=== PATIENT | female | born 1945 | race Caucasian/White ===

== ENCOUNTER → 2018-12-08 | Day surgery (SDC) | payer MEDICARE, BC ==
[~2018-12-08] MED LIST: Bupivacaine 0.25% 30 ML SDV ONE; Lidocaine 1% with EPINEPHrine 1:100,000 20 ML MDV ONE
--- NOTE | 2018-12-08 11:46 | PCM.OPNOTE ---
- General Post-Op/Procedure Note Date of Surgery/Procedure: 12/08/18 Operative Procedure(s): Excision Basal Cell Ca Right Cheek with primary closure. Excision of Basal Cell Ca of Nose with closure by rotation cutaneous flap Findings: Basal Cell Ca right cheek and nose with clear margins by RFS Pre Op Diagnosis: Basal Cell Ca of face and nose Post-Op Diagnosis: Same Anesthesia Technique: Local Primary Surgeon: Maynor Lopez Pathology: skin lesions right cheek and nose with RFS Output, Urine Amount: 0 EBL in mLs: 10 Complications: None Condition: Good
[2018-12-08 12:46] VITALS: BP 134/70
--- NOTE | 2018-12-08 18:18 | OR ---
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 POSTOPERATIVE DIAGNOSIS: Basal cell carcinomas of the nose and right cheek. OPERATION PERFORMED: Excision of basal cell carcinoma of the nose with closure by rotational cutaneous flap and excision of basal cell carcinoma of the right cheek. INDICATIONS FOR SURGERY: This is a 73-year-old female who has developed skin lesions on the nose and right cheek. She comes today for excision with rapid frozen section analysis. FINDINGS: On the right cheek, the patient has a 1-cm irregularly shaped slightly raised skin lesion. Pathology has confirmed this to be a basal cell carcinoma. The surgical margins were clear as noted under rapid frozen section analysis. On the nose, the patient has a skin lesion which is 10 x 8 mm in size. Excision did show positive surgical margins inferiorly into the patient's left, but these appeared to be clear after re-excision of this margin. PROCEDURE IN DETAIL: The patient was taken to the operating room. The face was sterilely prepped with Betadine and draped. An elliptical incision was then used to excise the skin lesion on the right cheek with grossly clear 2-mm surgical margins. The specimen was submitted for rapid frozen section analysis and this returned showing surgical margins to be microscopically clear. This wound was then closed primarily with interrupted 5-0 Prolene for the skin. The area of the nose was then addressed. The site of the basal cell carcinoma was anesthetized with Xylocaine and Marcaine. A circular incision was made surrounding the skin lesion with grossly clear 2 mm surgical margins. The rapid frozen section analysis did show the inferior margin on the patient's left side was positive, so an additional 2-mm ellipse of skin was taken from this area. This wound was then closed by creating a rhomboid-shaped cutaneous flap superior to the defect and rotating this in and covering the defect. With tissue undermining, this defect was then able to be completely closed, securing the skin in place with interrupted 5-0 Prolene. Antibiotic ointment and sterile dressing were placed. The patient then left the operating room in satisfactory condition. ESTIMATED BLOOD LOSS: 10 mL. COMPLICATIONS: None. PROGNOSIS: Good. /[id number] TARSHA/JEANMARIE MADISON
--- NOTE | 2018-12-15 16:20 | HP ---
ADMISSION DATE: 12/08/2018 This 73-year-old female presents this morning for excision of basal cell carcinomas. She has developed these on both her nose and her right cheek. She has a history of basal cell carcinomas of other portions of her face in the past. She comes today for excision of these with rapid frozen section analysis to assure surgical margins are clear. There has been no recent significant change in her health status. The procedure will be performed under local anesthesia. The sites of the skin cancers are confirmed with the patient before proceeding. I have discussed with her the proposed operative procedure, expectations and risks have been reviewed, and she agrees to proceed. /[id number] TARSHA/JEANMARIE
== END | disposition home or self-care (01) ==
LOC: FB.SDS 07:39
PROVIDERS: ATTEND Surgery
DX: C44.311 Basal cell carcinoma of skin of nose (principal); C44.319 Basal cell carcinoma of skin of other parts of face; I27.20 Pulmonary hypertension, unspecified; I12.9 Hypertensive chronic kidney disease with stage 1 through stage 4 chronic kidney disease, or unspecified chronic kidney disease; E11.22 Type 2 diabetes mellitus with diabetic chronic kidney disease; N18.3 Chronic kidney disease, stage 3 (moderate); E78.5 Hyperlipidemia, unspecified; D64.9 Anemia, unspecified; K21.9 Gastro-esophageal reflux disease without esophagitis; F32.9 Major depressive disorder, single episode, unspecified; E66.01 Morbid (severe) obesity due to excess calories; Z68.32 Body mass index [BMI] 32.0-32.9, adult; Z79.4 Long term (current) use of insulin; Z79.899 Other long term (current) drug therapy; Z79.82 Long term (current) use of aspirin
CPT/HCPCS: 82962; 88305; 88331; 88332; J3490

== ENCOUNTER 2024-07-28 15:56 | Inpatient (IN) | payer MEDICARE, MEDICAID ==
[2024-07-28 16:29] LABS: BASOPHILS PERCENT AUTO 0.5 % (0.2-1.5); EOSINOPHILS PERCENT AUTO 0.9 % (0.6-8.1); HEMATOCRIT 40.9 % (34.2-48.2); HEMOGLOBIN 13.6 g/dL (11.4-15.5); LYMPHOCYTES ABSOLUTE AUTO 1.5 x10-3/uL (1.0-4.4); LYMPHOCYTES PERCENT AUTO 39.4 % (18.4-52.1); MEAN CORPUSCULAR HEMOGLOBIN 29.8 pg (23.9-33.9); MEAN CORPUSCULAR HGB CONC 33.2 g/dL (31.9-34.8); MEAN CORPUSCULAR VOLUME 89.9 fL (76.7-100.5); MEAN PLATELET VOLUME 8.8 fL (7.1-12.4); MONOCYTES ABSOLUTE AUTO 0.3 x10-3/uL (0.3-1.0); MONOCYTES PERCENT AUTO 7.7 % (4.4-15.7); NEUTROPHILS PERCENT AUTO 51.5 % (30.8-76.2); PLATELET COUNT,PLT 117 x10(3)uL (151-488); RED BLOOD CELL COUNT 4.55 x10(6)uL (3.60-5.20); RED CELL DISTRIBUTION WIDTH 15.9 % (12.3-16.5); WHITE BLOOD CELL COUNT,WBC 3.8 x10-3/uL (3.0-10.3)
[2024-07-28 16:41] LABS: TROPONIN I 8.7 pg/mL (4.0-60.3)
[2024-07-28 16:42] LABS: BASE EXCESS VENOUS,POC 1 mmol/L (-2 - 3+); PCO2 VENOUS,POC 43 mmHg (41-51)
[2024-07-28 16:44] LABS: A/G RATIO 0.9; ALKALINE PHOSPHATASE 146 IU/L (56-112); BILIRUBIN TOTAL 0.7 mg/dL (0.1-1.3); BLOOD UREA NITROGEN,BUN 25 mg/dL (7-18); BUN/CREATININE RATIO 16.7 (9-20); C-REACTIVE PROTEIN 4.99 mg/dL (<0.50); CALCIUM 10.2 mg/dL (8.6-10.2); CARBON DIOXIDE,CO2 27 mmol/L (21-32); CHLORIDE,CL 96 mmol/L (100-110); CREATINE KINASE,CK 45 IU/L (60-160); CREATININE 1.5 mg/dL (0.55-1.02); ESTIMATED GFR 35 mL/min (>60); GLUCOSE RANDOM 423 mg/dL (80-116); MAGNESIUM 1.4 mg/dL (1.8-2.5); PROTEIN TOTAL,TP 6.5 g/dL (6.0-8.0); SODIUM,NA 135 mmol/L (135-145)
[2024-07-28 16:45] LABS: ALANINE AMINOTRANSFERASE,ALT 689 U/L (12-36); ASPARTATE AMNIOTRANSFERASE,AST 299 IU/L (5-25)
[2024-07-28] MEDS: Sodium Chloride 0.9% 1,000 ML IV ONE ×2 (16:51→18:28)
[2024-07-28 20:58] LABS: BILIRUBIN,URINE NEGATIVE (NEGATIVE); GLUCOSE,URINE >1000 mg/dL (NORMAL); KETONES,URINE NEGATIVE (NEGATIVE); LEUKOCYTE ESTERASE,URINE MODERATE (NEGATIVE); NITRITE,URINE NEGATIVE (NEGATIVE); OCCULT BLOOD,URINE NEGATIVE (NEGATIVE); PROTEIN,URINE TRACE mg/dL (NEGATIVE); UROBILINOGEN,URINE NORMAL (NEGATIVE)
[2024-07-28 20:59] LABS: APPEARANCE,URINE CLEAR (CLEAR); BACTERIA,URINE MODERATE (NS); COLOR,URINE YELLOW (YELLOW); RBC,URINE 0-5 (0-5); SQUAMOUS EPITHELIAL CELLS,UR FEW (NS,R,O); YEAST,URINE MODERATE (NS)
[2024-07-28] MEDS ORDERED: Glucagon,Human Recombinant 1 MG Vial IM PRN (22:06)
[2024-07-28] MEDS ORDERED: 50% Dextrose in Water 50 ML Syringe IVPUSH PRN (22:06)
[2024-07-28] MEDS: Insulin Regular, Human 100 Units/ML 10 ML Vial IV ONE (22:21)
[2024-07-28] MEDS: cefTRIAXone 2 GM Vial IVPUSH ONE (22:21)
[2024-07-28] MEDS: Ondansetron 4 MG/2 ML SDV IVPUSH ONE (22:48)
[2024-07-28] MEDS: hydrALAZINE 20 MG/ML SDV IVPUSH ONE (22:50)
[2024-07-29] MEDS ORDERED: Glucagon,Human Recombinant 1 MG Vial IM PRN ×2 (00:51→01:05)
[2024-07-29] MEDS ORDERED: 50% Dextrose in Water 50 ML Syringe IVPUSH PRN ×2 (00:51→01:05)
[2024-07-29] MEDS: Enoxaparin 30 MG/0.3 ML Syringe SUBCUT SCH ×2 (01:10→08:53)
[2024-07-29] MEDS: Pantoprazole 40 MG Vial IVPUSH SCH ×2 (01:13→08:54)
[2024-07-29] MEDS: VANCOmycin 1.75 GM/350 ML 1.75 GM in Premix Bag 1 BAG IV ONE (01:23)
[2024-07-29] MEDS: Insulin Lispro 100 Unit/ML 3 ML KwikPen SUBCUT SCH ×2 (01:28→21:02)
[2024-07-29] MEDS: Magnesium Sulf/Wat 2 GM/50 mL 2 GM in Premix Bag 1 BAG IV SCH (03:18)
[2024-07-29 07:13] LABS: HEMATOCRIT 34.6 % (34.2-48.2); HEMOGLOBIN 11.8 g/dL (11.4-15.5); MEAN CORPUSCULAR HEMOGLOBIN 30.4 pg (23.9-33.9); MEAN CORPUSCULAR HGB CONC 33.9 g/dL (31.9-34.8); MEAN CORPUSCULAR VOLUME 89.5 fL (76.7-100.5); MEAN PLATELET VOLUME 8.9 fL (7.1-12.4); PLATELET COUNT,PLT 112 x10(3)uL (151-488); RED BLOOD CELL COUNT 3.87 x10(6)uL (3.60-5.20); RED CELL DISTRIBUTION WIDTH 16.2 % (12.3-16.5); WHITE BLOOD CELL COUNT,WBC 3.8 x10-3/uL (3.0-10.3)
[2024-07-29 07:17] LABS: BLOOD UREA NITROGEN,BUN 16 mg/dL (7-18); CALCIUM 8.5 mg/dL (8.6-10.2); CARBON DIOXIDE,CO2 28 mmol/L (21-32); CHLORIDE,CL 104 mmol/L (100-110); EST CRCL DRUG DOSING (CG) 33.86 mL/min; ESTIMATED GFR 57 mL/min (>60); GLUCOSE RANDOM 237 mg/dL (80-116); MAGNESIUM 2.3 mg/dL (1.8-2.5); SODIUM,NA 139 mmol/L (135-145)
[2024-07-29 07:25] LABS: POTASSIUM,K 2.6 mmol/L (3.5-5.3)
[2024-07-29 08:30] LABS: LYMPHOCYTES PERCENT MAN 35 % (13-37); MONOCYTES PERCENT MAN 6 % (4-12); SEG NEUTROPHILS PERCENT MAN 59 % (46-82)
[2024-07-29] MEDS ORDERED: Carboxymethylcellulose Sodium 0.5% Ophth Soln 15 ML Bottle EYEBOTH PRN (08:35)
[2024-07-29] MEDS: Levothyroxine 150 MCG Tab PO SCH (08:45)
[2024-07-29 08:51] LABS: ALBUMIN 2.4 g/dL (3.2-4.6); BILIRUBIN DIRECT 0.18 mg/dL (0.10-0.20); BILIRUBIN TOTAL 0.4 mg/dL (0.1-1.3)
[2024-07-29] MEDS: hydrALAZINE 25 MG Tab PO SCH (08:52)
[2024-07-29] MEDS: Saccharomyces Boulardii (Probiotic) 250 MG Cap PO SCH (08:53)
[2024-07-29] MEDS: atorvaSTATin 20 MG Tab PO SCH (08:53)
[2024-07-29] MEDS: Aspirin 81 MG Tab.EC PO SCH (08:53)
[2024-07-29] MEDS: Cyanocobalamin (Vitamin B12) 1,000 MCG Tab PO SCH (08:54)
[2024-07-29] MEDS: Lisinopril 20 MG Tab PO SCH (08:54)
[2024-07-29] MEDS: Cholecalciferol (Vitamin D3) 25 MCG Tab PO SCH (08:54)
[2024-07-29] MEDS: Sertraline 50 MG Tab PO SCH (08:54)
[2024-07-29] MEDS: Insulin Glargine,Human Rec. Analog 100 Units/ML 3 ML Pen SUBCUT SCH (09:09)
[2024-07-29] MEDS: Potassium Chloride 20 MEQ Tab.ER PO SCH (09:55)
[2024-07-29] MEDS: COLESTIPOL 1 GM PO SCH (12:09)
[2024-07-29] MEDS: traZODone 50 MG Tab PO SCH (20:44)
[2024-07-29] MEDS: Sodium Chloride 0.9% 10 ML Syringe FLUSH PRN (21:39)
[2024-07-29] MEDS: cefTRIAXone 1 GM Vial IVPUSH SCH (21:39)
[2024-07-30] MEDS: VANCOmycin 1 GM/200 ML 1 GM in Premix Bag 1 BAG IV SCH (01:58)
[2024-07-30 06:43] LABS: A/G RATIO 0.8; ALBUMIN 2.4 g/dL (3.2-4.6); ALKALINE PHOSPHATASE 105 IU/L (56-112); ASPARTATE AMNIOTRANSFERASE,AST 85 IU/L (5-25); BILIRUBIN TOTAL 0.3 mg/dL (0.1-1.3); BLOOD UREA NITROGEN,BUN 13 mg/dL (7-18); BUN/CREATININE RATIO 10.8 (9-20); CALCIUM 8.2 mg/dL (8.6-10.2); CARBON DIOXIDE,CO2 27 mmol/L (21-32); CHLORIDE,CL 103 mmol/L (100-110); CREATININE 1.2 mg/dL (0.55-1.02); EST CRCL DRUG DOSING (CG) 28.21 mL/min; ESTIMATED GFR 46 mL/min (>60); GLUCOSE RANDOM 200 mg/dL (80-116); POTASSIUM,K 3.7 mmol/L (3.5-5.3); PROTEIN TOTAL,TP 5.3 g/dL (6.0-8.0); SODIUM,NA 136 mmol/L (135-145)
[2024-07-30 06:49] LABS: ALANINE AMINOTRANSFERASE,ALT 353 U/L (12-36)
[2024-07-30] MEDS: Acetaminophen 325 MG Tab PO PRN (16:44)
[2024-07-31] MEDS: oxyCODONE 5 MG Tab PO PRN (03:38)
[2024-07-31] MEDS: Pantoprazole 40 MG Tab.CR PO SCH (05:00)
[2024-07-31 06:32] LABS: HEMATOCRIT 33.5 % (34.2-48.2); HEMOGLOBIN 11.2 g/dL (11.4-15.5); MEAN CORPUSCULAR HEMOGLOBIN 30.1 pg (23.9-33.9); MEAN CORPUSCULAR HGB CONC 33.4 g/dL (31.9-34.8); MEAN CORPUSCULAR VOLUME 90.3 fL (76.7-100.5); MEAN PLATELET VOLUME 8.5 fL (7.1-12.4); PLATELET COUNT,PLT 105 x10(3)uL (151-488); RED BLOOD CELL COUNT 3.71 x10(6)uL (3.60-5.20)
[2024-07-31 06:37] LABS: BLOOD UREA NITROGEN,BUN 12 mg/dL (7-18); BUN/CREATININE RATIO 9.2 (9-20); CALCIUM 8.1 mg/dL (8.6-10.2); CARBON DIOXIDE,CO2 27 mmol/L (21-32); CHLORIDE,CL 101 mmol/L (100-110); CREATININE 1.3 mg/dL (0.55-1.02); EST CRCL DRUG DOSING (CG) 26.04 mL/min; ESTIMATED GFR 42 mL/min (>60); GLUCOSE RANDOM 171 mg/dL (80-116); POTASSIUM,K 3.9 mmol/L (3.5-5.3); SODIUM,NA 136 mmol/L (135-145)
[2024-07-31 07:07] LABS: EOSINOPHILS PERCENT MAN 1 % (0-5); LYMPHOCYTES PERCENT MAN 32 % (13-37); MONOCYTES PERCENT MAN 7 % (4-12); SEG NEUTROPHILS PERCENT MAN 60 % (46-82)
[2024-07-31 07:09] LABS: SEDIMENTATION RATE MANUAL 17 mm/hr (0-20)
[2024-07-31] MEDS: Ondansetron 4 MG/2 ML SDV IV PRN (09:45)
[2024-07-31] MEDS: HYDROmorphone 2 MG/ML SDV IVPUSH PRN (10:14)
[2024-07-31 10:18] LABS: ALBUMIN 2.5 g/dL (3.2-4.6); BILIRUBIN DIRECT 0.17 mg/dL (0.10-0.20); BILIRUBIN TOTAL 0.3 mg/dL (0.1-1.3); PROTEIN TOTAL,TP 5.4 g/dL (6.0-8.0)
[2024-07-31] MEDS: Gadoteridol 279.3 MG/ML 10 ML SDV IVPUSH ONE (14:51)
[2024-07-31] MEDS: Naloxone 0.4 MG/ML SDV IVPUSH PRN (17:18)
[2024-07-31] MEDS ORDERED: Ketorolac 15 MG/ML SDV IVPUSH PRN (18:00)
[2024-08-01 06:35] LABS: HEMATOCRIT 39.3 % (34.2-48.2); HEMOGLOBIN 13.1 g/dL (11.4-15.5); MEAN CORPUSCULAR HEMOGLOBIN 30.5 pg (23.9-33.9); MEAN CORPUSCULAR HGB CONC 33.3 g/dL (31.9-34.8); MEAN CORPUSCULAR VOLUME 91.6 fL (76.7-100.5); MEAN PLATELET VOLUME 8.9 fL (7.1-12.4); PLATELET COUNT,PLT 161 x10(3)uL (151-488); RED BLOOD CELL COUNT 4.29 x10(6)uL (3.60-5.20); RED CELL DISTRIBUTION WIDTH 16.2 % (12.3-16.5)
[2024-08-01 06:59] LABS: A/G RATIO 0.9; ALBUMIN 2.8 g/dL (3.2-4.6); ALKALINE PHOSPHATASE 112 IU/L (56-112); ASPARTATE AMNIOTRANSFERASE,AST 45 IU/L (5-25); BILIRUBIN TOTAL 0.5 mg/dL (0.1-1.3); BLOOD UREA NITROGEN,BUN 15 mg/dL (7-18); BUN/CREATININE RATIO 9.4 (9-20); CALCIUM 8.3 mg/dL (8.6-10.2); CARBON DIOXIDE,CO2 20 mmol/L (21-32); CHLORIDE,CL 96 mmol/L (100-110); CREATININE 1.6 mg/dL (0.55-1.02); EST CRCL DRUG DOSING (CG) 21.16 mL/min; ESTIMATED GFR 32 mL/min (>60); POTASSIUM,K 4.5 mmol/L (3.5-5.3); PROTEIN TOTAL,TP 6.1 g/dL (6.0-8.0); SODIUM,NA 132 mmol/L (135-145)
[2024-08-01 07:01] LABS: GLUCOSE RANDOM 402 mg/dL (80-116)
[2024-08-01 07:02] LABS: ALANINE AMINOTRANSFERASE,ALT 236 U/L (12-36)
[2024-08-01 07:39] LABS: LYMPHOCYTES PERCENT MAN 13 % (13-37); METAMYELOCYTE PERCENT MAN 2 % (0-0); MONOCYTES PERCENT MAN 3 % (4-12); MYELOCYTE PERCENT MAN 2 % (0-0); SEG NEUTROPHILS PERCENT MAN 80 % (46-82)
[2024-08-01] MEDS: Insulin Lispro 100 Unit/ML 3 ML KwikPen SUBCUT STA ×3 (08:06→11:51)
[2024-08-01] MEDS: Sodium Chloride 0.9% 1,000 ML IV SCH (09:55)
[2024-08-01] MEDS: Insulin Lispro Protamine/Lispro 75-25 100 Units/ML 3 ML KwikPen SUBCUT STA (15:52)
[2024-08-01] MEDS: Sodium Chloride 0.9% 1,000 ML IV ONE (17:34)
[2024-08-01] MEDS: Insulin Lispro 100 Unit/ML 3 ML KwikPen SUBCUT SCH (17:46)
[2024-08-02 06:45] LABS: BASOPHILS PERCENT AUTO 0.2 % (0.2-1.5); HEMATOCRIT 35.2 % (34.2-48.2); HEMOGLOBIN 11.6 g/dL (11.4-15.5); LYMPHOCYTES ABSOLUTE AUTO 1.1 x10-3/uL (1.0-4.4); MEAN CORPUSCULAR HEMOGLOBIN 29.8 pg (23.9-33.9); MEAN CORPUSCULAR VOLUME 90.5 fL (76.7-100.5); MEAN PLATELET VOLUME 8.4 fL (7.1-12.4); MONOCYTES ABSOLUTE AUTO 0.3 x10-3/uL (0.3-1.0); MONOCYTES PERCENT AUTO 4.1 % (4.4-15.7); NEUTROPHILS ABSOLUTE AUTO 6.4 x10-3/uL (1.5-6.3); NEUTROPHILS PERCENT AUTO 81.7 % (30.8-76.2); PLATELET COUNT,PLT 158 x10(3)uL (151-488); RED BLOOD CELL COUNT 3.89 x10(6)uL (3.60-5.20); WHITE BLOOD CELL COUNT,WBC 7.9 x10-3/uL (3.0-10.3)
[2024-08-02 07:01] LABS: A/G RATIO 0.8; ALBUMIN 2.5 g/dL (3.2-4.6); ALKALINE PHOSPHATASE 88 IU/L (56-112); ASPARTATE AMNIOTRANSFERASE,AST 22 IU/L (5-25); BILIRUBIN TOTAL 0.3 mg/dL (0.1-1.3); BLOOD UREA NITROGEN,BUN 21 mg/dL (7-18); BUN/CREATININE RATIO 10.5 (9-20); CALCIUM 7.7 mg/dL (8.6-10.2); CARBON DIOXIDE,CO2 25 mmol/L (21-32); CHLORIDE,CL 98 mmol/L (100-110); EST CRCL DRUG DOSING (CG) 16.93 mL/min; ESTIMATED GFR 25 mL/min (>60); GLUCOSE RANDOM 380 mg/dL (80-116); POTASSIUM,K 4.8 mmol/L (3.5-5.3); PROTEIN TOTAL,TP 5.5 g/dL (6.0-8.0); SODIUM,NA 131 mmol/L (135-145)
[2024-08-02 07:10] LABS: ALANINE AMINOTRANSFERASE,ALT 168 U/L (12-36)
[2024-08-02 08:47] LABS: BILIRUBIN,URINE NEGATIVE (NEGATIVE); GLUCOSE,URINE >1000 mg/dL (NORMAL); KETONES,URINE NEGATIVE (NEGATIVE); LEUKOCYTE ESTERASE,URINE NEGATIVE (NEGATIVE); NITRITE,URINE NEGATIVE (NEGATIVE); OCCULT BLOOD,URINE NEGATIVE (NEGATIVE); PROTEIN,URINE TRACE mg/dL (NEGATIVE); UROBILINOGEN,URINE NORMAL (NEGATIVE)
[2024-08-02 09:02] LABS: APPEARANCE,URINE CLOUDY (CLEAR); BACTERIA,URINE FEW (NS); COLOR,URINE YELLOW (YELLOW); RBC,URINE 0-5 (0-5); SQUAMOUS EPITHELIAL CELLS,UR FEW (NS,R,O); URIC ACID CRYSTALS,URINE FEW (NS)
[2024-08-02 09:03] LABS: YEAST,URINE MANY (NS)
[2024-08-02] MEDS: Insulin Lispro 100 Unit/ML 3 ML KwikPen SUBCUT SCH (11:54)
[2024-08-02] MEDS: Sodium Chloride 0.9% 1,000 ML IV ONE (21:27)
[2024-08-03 06:25] LABS: HEMATOCRIT 31.4 % (34.2-48.2); HEMOGLOBIN 10.5 g/dL (11.4-15.5); MEAN CORPUSCULAR HEMOGLOBIN 30.1 pg (23.9-33.9); MEAN CORPUSCULAR HGB CONC 33.4 g/dL (31.9-34.8); MEAN CORPUSCULAR VOLUME 90.1 fL (76.7-100.5); MEAN PLATELET VOLUME 8.3 fL (7.1-12.4); PLATELET COUNT,PLT 146 x10(3)uL (151-488); RED BLOOD CELL COUNT 3.48 x10(6)uL (3.60-5.20); WHITE BLOOD CELL COUNT,WBC 7.3 x10-3/uL (3.0-10.3)
[2024-08-03 06:36] LABS: A/G RATIO 0.9; ALANINE AMINOTRANSFERASE,ALT 125 U/L (12-36); ALBUMIN 2.2 g/dL (3.2-4.6); ALKALINE PHOSPHATASE 76 IU/L (56-112); ASPARTATE AMNIOTRANSFERASE,AST 20 IU/L (5-25); BILIRUBIN TOTAL 0.2 mg/dL (0.1-1.3); BLOOD UREA NITROGEN,BUN 21 mg/dL (7-18); CALCIUM 7.1 mg/dL (8.6-10.2); CARBON DIOXIDE,CO2 25 mmol/L (21-32); CHLORIDE,CL 103 mmol/L (100-110); CREATININE 1.5 mg/dL (0.55-1.02); EST CRCL DRUG DOSING (CG) 22.57 mL/min; ESTIMATED GFR 35 mL/min (>60); GLUCOSE RANDOM 302 mg/dL (80-116); POTASSIUM,K 4.5 mmol/L (3.5-5.3); PROTEIN TOTAL,TP 4.8 g/dL (6.0-8.0); SODIUM,NA 134 mmol/L (135-145)
[2024-08-03 06:57] LABS: ANISOCYTOSIS FEW; LYMPHOCYTES PERCENT MAN 16 % (13-37); MONOCYTES PERCENT MAN 4 % (4-12); MYELOCYTE PERCENT MAN 1 % (0-0); SEG NEUTROPHILS PERCENT MAN 79 % (46-82)
[2024-08-03] MEDS: Insulin Glargine,Human Rec. Analog 100 Units/ML 3 ML Pen SUBCUT ONE (11:07)
[2024-08-03] MEDS: Calcium Carbonate 500 MG Tablet PO SCH (11:07)
[2024-08-03] MEDS: Gadoteridol 279.3 MG/ML 10 ML SDV IVPUSH ONE (14:36)
[2024-08-04 06:36] LABS: HEMOGLOBIN 10.8 g/dL (11.4-15.5); MEAN CORPUSCULAR HEMOGLOBIN 30.5 pg (23.9-33.9); MEAN CORPUSCULAR HGB CONC 33.8 g/dL (31.9-34.8); MEAN CORPUSCULAR VOLUME 90.2 fL (76.7-100.5); MEAN PLATELET VOLUME 8.1 fL (7.1-12.4); PLATELET COUNT,PLT 153 x10(3)uL (151-488); RED BLOOD CELL COUNT 3.55 x10(6)uL (3.60-5.20); RED CELL DISTRIBUTION WIDTH 16.1 % (12.3-16.5); WHITE BLOOD CELL COUNT,WBC 6.4 x10-3/uL (3.0-10.3)
[2024-08-04 06:45] LABS: A/G RATIO 0.9; ALANINE AMINOTRANSFERASE,ALT 118 U/L (12-36); ALBUMIN 2.3 g/dL (3.2-4.6); ALKALINE PHOSPHATASE 77 IU/L (56-112); ASPARTATE AMNIOTRANSFERASE,AST 29 IU/L (5-25); BILIRUBIN TOTAL 0.2 mg/dL (0.1-1.3); BLOOD UREA NITROGEN,BUN 16 mg/dL (7-18); BUN/CREATININE RATIO 13.3 (9-20); CALCIUM 7.4 mg/dL (8.6-10.2); CARBON DIOXIDE,CO2 26 mmol/L (21-32); CHLORIDE,CL 106 mmol/L (100-110); CREATININE 1.2 mg/dL (0.55-1.02); EST CRCL DRUG DOSING (CG) 28.21 mL/min; ESTIMATED GFR 46 mL/min (>60); GLUCOSE RANDOM 184 mg/dL (80-116); POTASSIUM,K 3.9 mmol/L (3.5-5.3); SODIUM,NA 138 mmol/L (135-145)
[2024-08-04 06:59] LABS: LYMPHOCYTES PERCENT MAN 25 % (13-37); MONOCYTES PERCENT MAN 3 % (4-12); MYELOCYTE PERCENT MAN 1 % (0-0); SEG NEUTROPHILS PERCENT MAN 71 % (46-82)
[2024-08-04 07:01] LABS: ANISOCYTOSIS FEW
[2024-08-04] MEDS: Insulin Glargine,Human Rec. Analog 100 Units/ML 3 ML Pen SUBCUT SCH (10:13)
[2024-08-04 19:12] LABS: HEPATITIS A ANTIBODY, IGM Negative (Negative); HEPATITIS B CORE ANTIBODY, IGM Negative (Negative); HEPATITIS B SURFACE ANTIGEN Negative (Negative); HEPATITIS C AB CIA INTERP Negative (Negative); HEPATITIS C ANTIBODY CIA INDEX 0.22 IV
[2024-08-04 21:21] LABS: CREATININE, URINE - PER VOLUME 104 mg/dL; HOURS COLLECTED Not Provided hr; SODIUM, URINE - PER VOLUME <20 mmol/L; TOTAL VOLUME Not Provided mL
[2024-08-05 06:31] LABS: BASOPHILS PERCENT AUTO 0.5 % (0.2-1.5); EOSINOPHILS PERCENT AUTO 0.2 % (0.6-8.1); HEMATOCRIT 32.8 % (34.2-48.2); HEMOGLOBIN 11.1 g/dL (11.4-15.5); LYMPHOCYTES ABSOLUTE AUTO 1.9 x10-3/uL (1.0-4.4); LYMPHOCYTES PERCENT AUTO 31.8 % (18.4-52.1); MEAN CORPUSCULAR HEMOGLOBIN 30.3 pg (23.9-33.9); MEAN CORPUSCULAR HGB CONC 33.9 g/dL (31.9-34.8); MEAN CORPUSCULAR VOLUME 89.3 fL (76.7-100.5); MONOCYTES ABSOLUTE AUTO 0.5 x10-3/uL (0.3-1.0); MONOCYTES PERCENT AUTO 8.3 % (4.4-15.7); NEUTROPHILS ABSOLUTE AUTO 3.5 x10-3/uL (1.5-6.3); NEUTROPHILS PERCENT AUTO 59.2 % (30.8-76.2); PLATELET COUNT,PLT 157 x10(3)uL (151-488); RED BLOOD CELL COUNT 3.68 x10(6)uL (3.60-5.20); RED CELL DISTRIBUTION WIDTH 16.1 % (12.3-16.5); WHITE BLOOD CELL COUNT,WBC 5.9 x10-3/uL (3.0-10.3)
[2024-08-05 06:44] LABS: A/G RATIO 0.9; ALANINE AMINOTRANSFERASE,ALT 110 U/L (12-36); ALBUMIN 2.3 g/dL (3.2-4.6); ALKALINE PHOSPHATASE 81 IU/L (56-112); ASPARTATE AMNIOTRANSFERASE,AST 35 IU/L (5-25); BILIRUBIN TOTAL 0.3 mg/dL (0.1-1.3); BLOOD UREA NITROGEN,BUN 14 mg/dL (7-18); CALCIUM 7.9 mg/dL (8.6-10.2); CARBON DIOXIDE,CO2 30 mmol/L (21-32); CHLORIDE,CL 105 mmol/L (100-110); EST CRCL DRUG DOSING (CG) 33.86 mL/min; ESTIMATED GFR 57 mL/min (>60); GLUCOSE RANDOM 133 mg/dL (80-116); POTASSIUM,K 3.2 mmol/L (3.5-5.3); SODIUM,NA 142 mmol/L (135-145)
[2024-08-05] MEDS ORDERED: Lactated Ringers 1,000 ML IV SCH (09:45)
[2024-08-05] MEDS ORDERED: Sennosides 8.6 MG Tab PO SCH (10:30)
[2024-08-05] MEDS: Sennosides 8.6 MG Tab PO SCH (10:54)
[2024-08-05] MEDS: Lisinopril 20 MG Tab PO SCH (10:55)
[2024-08-05] MEDS: Potassium Chloride 20 MEQ in Premix Bag 1 BAG IV SCH (11:01)
[2024-08-05 11:49] LABS: CREATININE,URINE - PER VOLUME 104 mg/dL; HOURS COLLECTED Not Provided hr; TOTAL VOLUME Not Provided mL
[2024-08-05] MEDS: Potassium Chloride 20 MEQ Tab.ER PO ONE (14:57)
[2024-08-06 05:53] LABS: BASOPHILS PERCENT AUTO 0.3 % (0.2-1.5); EOSINOPHILS PERCENT AUTO 0.7 % (0.6-8.1); HEMATOCRIT 33.5 % (34.2-48.2); HEMOGLOBIN 11.8 g/dL (11.4-15.5); LYMPHOCYTES ABSOLUTE AUTO 2.1 x10-3/uL (1.0-4.4); LYMPHOCYTES PERCENT AUTO 36.8 % (18.4-52.1); MEAN CORPUSCULAR HEMOGLOBIN 31.6 pg (23.9-33.9); MEAN CORPUSCULAR HGB CONC 35.1 g/dL (31.9-34.8); MEAN CORPUSCULAR VOLUME 89.9 fL (76.7-100.5); MEAN PLATELET VOLUME 7.9 fL (7.1-12.4); MONOCYTES ABSOLUTE AUTO 0.4 x10-3/uL (0.3-1.0); MONOCYTES PERCENT AUTO 7.5 % (4.4-15.7); NEUTROPHILS ABSOLUTE AUTO 3.1 x10-3/uL (1.5-6.3); NEUTROPHILS PERCENT AUTO 54.7 % (30.8-76.2); PLATELET COUNT,PLT 145 x10(3)uL (151-488); RED BLOOD CELL COUNT 3.73 x10(6)uL (3.60-5.20); RED CELL DISTRIBUTION WIDTH 16.3 % (12.3-16.5); WHITE BLOOD CELL COUNT,WBC 5.7 x10-3/uL (3.0-10.3)
[2024-08-06 06:01] LABS: A/G RATIO 0.9; ALANINE AMINOTRANSFERASE,ALT 106 U/L (12-36); ALBUMIN 2.3 g/dL (3.2-4.6); ALKALINE PHOSPHATASE 84 IU/L (56-112); ASPARTATE AMNIOTRANSFERASE,AST 36 IU/L (5-25); BILIRUBIN TOTAL 0.3 mg/dL (0.1-1.3); BLOOD UREA NITROGEN,BUN 13 mg/dL (7-18); BUN/CREATININE RATIO 14.4 (9-20); CALCIUM 8.1 mg/dL (8.6-10.2); CARBON DIOXIDE,CO2 29 mmol/L (21-32); CHLORIDE,CL 105 mmol/L (100-110); CREATININE 0.9 mg/dL (0.55-1.02); EST CRCL DRUG DOSING (CG) 37.62 mL/min; ESTIMATED GFR 65 mL/min (>60); GLUCOSE RANDOM 114 mg/dL (80-116); MAGNESIUM 1.6 mg/dL (1.8-2.5); POTASSIUM,K 3.4 mmol/L (3.5-5.3); SODIUM,NA 140 mmol/L (135-145)
[2024-08-06 10:59] VITALS: PULSE 64
[2024-08-06] MEDS: Potassium Chloride 20 MEQ Tab.ER PO ONE (11:58)
[2024-08-06] MEDS: Magnesium Sulf/Wat 2 GM/50 mL 2 GM in Premix Bag 1 BAG IV ONE (12:00)
[2024-08-06] MEDS: Insulin Glargine,Human Rec. Analog 100 Units/ML 3 ML Pen SUBCUT SCH ×2 (12:03→15:03)
[2024-08-06] MEDS ORDERED: fentaNYL 100 MCG/2 ML SDV IV ONE (12:15)
[2024-08-06] MEDS ORDERED: Lidocaine 2% 100 MG/5 ML Syringe IVPUSH ONE (12:15)
[2024-08-06] MEDS ORDERED: Propofol 200 MG/20 ML SDV IV ONE (12:15)
[2024-08-06 15:00] VITALS: BP 149/88
[2024-08-06 19:39] LABS: POTASSIUM,K 4.3 mmol/L (3.5-5.3)
== END 2024-08-06 15:05 | disposition swing bed (61) | DRG 934 ==
LOC: FB.ED 15:56 → FB.MS 22:36
PROVIDERS: ADMIT Emergency Medicine; ATTEND Internal Medicine
PROC: 0HBNXZZ Excision of Left Foot Skin, External Approach (ICD-10-PCS; principal; 2024-08-06 07:30)
DX: T25.322A Burn of third degree of left foot, initial encounter (principal); A41.9 Sepsis, unspecified organism; N39.0 Urinary tract infection, site not specified; N17.9 Acute kidney failure, unspecified; L03.116 Cellulitis of left lower limb; E87.20 Acidosis, unspecified; T25.332A Burn of third degree of left toe(s) (nail), initial encounter; E11.65 Type 2 diabetes mellitus with hyperglycemia; H26.9 Unspecified cataract; M81.0 Age-related osteoporosis without current pathological fracture; E87.6 Hypokalemia; R74.01 Elevation of levels of liver transaminase levels; R82.71 Bacteriuria; E11.40 Type 2 diabetes mellitus with diabetic neuropathy, unspecified; B35.1 Tinea unguium; G93.89 Other specified disorders of brain; N18.30 Chronic kidney disease, stage 3 unspecified; E23.7 Disorder of pituitary gland, unspecified; E11.22 Type 2 diabetes mellitus with diabetic chronic kidney disease; I12.9 Hypertensive chronic kidney disease with stage 1 through stage 4 chronic kidney disease, or unspecified chronic kidney disease; R82.81 Pyuria; K59.00 Constipation, unspecified; R51.9 Headache, unspecified; I10 Essential (primary) hypertension; E78.00 Pure hypercholesterolemia, unspecified; K21.9 Gastro-esophageal reflux disease without esophagitis; E03.9 Hypothyroidism, unspecified; X16.XXXA Contact with hot heating appliances, radiators and pipes, initial encounter; Z79.02 Long term (current) use of antithrombotics/antiplatelets; Y93.89 Activity, other specified; Z79.82 Long term (current) use of aspirin; Z79.899 Other long term (current) drug therapy; E11.9 Type 2 diabetes mellitus without complications; E66.9 Obesity, unspecified; Z68.37 Body mass index [BMI] 37.0-37.9, adult; Z87.01 Personal history of pneumonia (recurrent); Z79.4 Long term (current) use of insulin; Z79.890 Hormone replacement therapy; Z79.84 Long term (current) use of oral hypoglycemic drugs; Z79.1 Long term (current) use of non-steroidal anti-inflammatories (NSAID)
CPT/HCPCS: 36415; 51702; 70450; 71045; 73630; 80053; 81001; 82550; 82947 ×2; 83605 ×2; 83735; 84484; 85025; 86140; 87040 ×2; 87086; 87428; 93005; 93010; 96360; 96361; 99285 ×2; A9270; J0696; J7030 ×2; 00400; 70553; 73620-LT; 73620-RT; 73720-LT; 76705; 80048; 80074; 80076; 80202; 82570; 84132; 84300; 85651; 88304; 97110-GO; 97116-GP; 97161-GP; 97165-GO; 97530-GO; 97530-GP; 99100; 99222; 99232; 99238; A9579; J0360; J1171; J1650; J1815; J1815-GY; J2310; J2405; J2470; J2704; J3010; J3372; J3475; J3480

== ENCOUNTER 2024-08-06 14:50 | Inpatient (IN) | payer MEDICARE, MEDICAID ==
[2024-08-06] MEDS ORDERED: oxyCODONE 5 MG Tab PO PRN (15:45)
[2024-08-06] MEDS ORDERED: 50% Dextrose in Water 50 ML Syringe IVPUSH PRN ×2 (15:45→15:58)
[2024-08-06] MEDS ORDERED: Sennosides 8.6 MG Tab PO PRN (15:45)
[2024-08-06] MEDS ORDERED: Glucagon,Human Recombinant 1 MG Vial IM PRN ×2 (15:45→15:58)
[2024-08-06] MEDS ORDERED: Furosemide 20 MG Tab PO PRN (15:45)
[2024-08-06] MEDS ORDERED: Carboxymethylcellulose Sodium 0.5% Ophth Soln 15 ML Bottle EYEBOTH PRN (15:57)
[2024-08-06] MEDS ORDERED: Melatonin 3 MG Tab PO PRN (16:03)
[2024-08-06 17:01] LABS: GLUCOSE,POC 290 mg/dL (80-116)
[2024-08-06] MEDS: Pantoprazole 40 MG Tab.CR PO SCH (18:29)
[2024-08-06] MEDS: metFORMIN 500 MG Tab PO SCH (18:31)
[2024-08-06] MEDS: Cephalexin 500 MG Cap PO SCH (18:31)
[2024-08-06] MEDS: Aspirin 81 MG Tab.EC PO SCH (18:33)
[2024-08-06] MEDS: Insulin Lispro 100 Unit/ML 3 ML KwikPen SUBCUT SCH (18:41)
[2024-08-06 21:00] LABS: GLUCOSE,POC 303 mg/dL (80-116)
[2024-08-06] MEDS: Oxybutynin 5 MG Tab.ER PO SCH (21:09)
[2024-08-06] MEDS: Famotidine 20 MG Tab PO SCH (21:10)
[2024-08-06] MEDS: traZODone 50 MG Tab PO SCH (21:10)
[2024-08-06] MEDS: Acetaminophen 500 MG Tab PO SCH (21:10)
[2024-08-06] MEDS: Sennosides/Docusate Sodium 50-8.6 MG Tab PO SCH (21:10)
[2024-08-06] MEDS: hydrALAZINE 25 MG Tab PO SCH (21:19)
[2024-08-06] MEDS: Insulin Lispro 100 Unit/ML 3 ML KwikPen SUBCUT STA (21:20)
[2024-08-07 06:14] LABS: GLUCOSE,POC 118 mg/dL (80-116)
[2024-08-07] MEDS: Insulin Glargine,Human Rec. Analog 100 Units/ML 3 ML Pen SUBCUT SCH (08:16)
[2024-08-07] MEDS: atorvaSTATin 20 MG Tab PO SCH (08:17)
[2024-08-07] MEDS: Polyethylene Glycol 3350 Powder 17 GM Packet PO SCH (08:17)
[2024-08-07] MEDS: Lisinopril 20 MG Tab PO SCH (08:18)
[2024-08-07] MEDS: Cyanocobalamin (Vitamin B12) 1,000 MCG Tab PO SCH (08:19)
[2024-08-07] MEDS: Sertraline 50 MG Tab PO SCH (08:20)
[2024-08-07] MEDS: Cholecalciferol (Vitamin D3) 25 MCG Tab PO SCH (08:20)
[2024-08-07 11:05] LABS: GLUCOSE,POC 186 mg/dL (80-116)
[2024-08-07] MEDS: Insulin Lispro 100 Unit/ML 3 ML KwikPen SUBCUT SCH (11:51)
[2024-08-07 17:20] LABS: GLUCOSE,POC 135 mg/dL (80-116)
[2024-08-07 21:12] LABS: GLUCOSE,POC 146 mg/dL (80-116)
[2024-08-08 06:19] LABS: GLUCOSE,POC 140 mg/dL (80-116)
[2024-08-08 11:14] LABS: GLUCOSE,POC 143 mg/dL (80-116)
[2024-08-08 17:19] LABS: GLUCOSE,POC 139 mg/dL (80-116)
[2024-08-08 21:02] LABS: GLUCOSE,POC 146 mg/dL (80-116)
[2024-08-09 06:25] LABS: GLUCOSE,POC 99 mg/dL (80-116)
[2024-08-09 12:22] LABS: GLUCOSE,POC 160 mg/dL (80-116)
[2024-08-09 17:08] LABS: GLUCOSE,POC 97 mg/dL (80-116)
[2024-08-09 20:10] LABS: GLUCOSE,POC 142 mg/dL (80-116)
[2024-08-10 06:08] LABS: GLUCOSE,POC 91 mg/dL (80-116)
[2024-08-10 11:24] LABS: GLUCOSE,POC 136 mg/dL (80-116)
[2024-08-10 18:01] LABS: GLUCOSE,POC 230 mg/dL (80-116)
[2024-08-10 20:58] LABS: GLUCOSE,POC 215 mg/dL (80-116)
[2024-08-11 07:33] LABS: GLUCOSE,POC 159 mg/dL (80-116)
[2024-08-11 11:28] LABS: GLUCOSE,POC 164 mg/dL (80-116)
[2024-08-11] MEDS ORDERED: Polyethylene Glycol 3350 Powder 17 GM Packet PO PRN (17:22)
[2024-08-11 17:37] LABS: GLUCOSE,POC 147 mg/dL (80-116)
[2024-08-11 20:55] LABS: GLUCOSE,POC 130 mg/dL (80-116)
[2024-08-12 06:23] LABS: GLUCOSE,POC 80 mg/dL (80-116)
[2024-08-12] MEDS: Levothyroxine 150 MCG Tab PO SCH (06:27)
[2024-08-12 06:31] LABS: GLUCOSE,POC 78 mg/dL (80-116)
[2024-08-12 09:08] LABS: GLUCOSE,POC 156 mg/dL (80-116)
[2024-08-12 11:37] LABS: GLUCOSE,POC 115 mg/dL (80-116)
[2024-08-12] MEDS: Tuberculin, PPD 5 Units/0.1 ML 1 ML MDV IDERM ONE (13:49)
[2024-08-12 17:24] LABS: GLUCOSE,POC 85 mg/dL (80-116)
[2024-08-12 21:34] LABS: GLUCOSE,POC 126 mg/dL (80-116)
[2024-08-13 07:05] LABS: GLUCOSE,POC 99 mg/dL (80-116)
[2024-08-13 09:53] VITALS: BP 156/82; PULSE 84
== END 2024-08-13 10:25 | DRG 948 ==
LOC: FB.MS 15:05
PROVIDERS: ADMIT Internal Medicine; ATTEND Family Medicine
DX: R53.81 Other malaise (principal); L03.116 Cellulitis of left lower limb; L97.429 Non-pressure chronic ulcer of left heel and midfoot with unspecified severity; L97.419 Non-pressure chronic ulcer of right heel and midfoot with unspecified severity; N18.9 Chronic kidney disease, unspecified; T25.022D Burn of unspecified degree of left foot, subsequent encounter; E03.9 Hypothyroidism, unspecified; E66.09 Other obesity due to excess calories; R74.01 Elevation of levels of liver transaminase levels; M79.5 Residual foreign body in soft tissue; E87.6 Hypokalemia; K59.00 Constipation, unspecified; R82.81 Pyuria; H54.7 Unspecified visual loss; K21.9 Gastro-esophageal reflux disease without esophagitis; M81.0 Age-related osteoporosis without current pathological fracture; G47.30 Sleep apnea, unspecified; I27.20 Pulmonary hypertension, unspecified; E78.00 Pure hypercholesterolemia, unspecified; E11.40 Type 2 diabetes mellitus with diabetic neuropathy, unspecified; F31.9 Bipolar disorder, unspecified; I12.9 Hypertensive chronic kidney disease with stage 1 through stage 4 chronic kidney disease, or unspecified chronic kidney disease; E11.22 Type 2 diabetes mellitus with diabetic chronic kidney disease; E83.42 Hypomagnesemia; Z98.890 Other specified postprocedural states; Z79.4 Long term (current) use of insulin; Z68.34 Body mass index [BMI] 34.0-34.9, adult; Z79.82 Long term (current) use of aspirin; Z79.899 Other long term (current) drug therapy; Z79.84 Long term (current) use of oral hypoglycemic drugs; X58.XXXD Exposure to other specified factors, subsequent encounter
CPT/HCPCS: 82947; 86580; 97110-GP; 97168-GO; 97530-GO; 97530-GP; 97535-GO; 97542-GO; 99305; 99308; 99315; A9270-GY; J1815; J1815-GY

== ENCOUNTER 2025-05-07 10:34 | Emergency (ER) | payer MEDICARE, MEDICAID ==
[2025-05-07 11:47] LABS: INFLUENZA A NAA NEGATIVE (NEGATIVE); INFLUENZA B NAA NEGATIVE (NEGATIVE); RESPIRATORY SYNCYTIAL VIR NAA NEGATIVE (NEGATIVE)
[2025-05-07 11:57] VITALS: BP 147/63
[2025-05-07 11:57] LABS: CORONAVIRUS COVID-19 NAA NEGATIVE (NEGATIVE)
[2025-05-07 12:13] LABS: BASE EXCESS VENOUS,POC 3 mmol/L (-2 - 3+); PCO2 VENOUS,POC 38 mmHg (41-51); PH VENOUS,POC 7.46 pH Units (7.32-7.43)
[2025-05-07 12:30] LABS: LACTIC ACID 1.5 mmol/L (0.4-2.0)
[2025-05-07 13:00] VITALS: PULSE 57
[2025-05-07 14:10] LABS: INR 0.93 (1.00-1.24); PTT,PARTIAL THROMBOPLSTIN TIME 18.3 SECONDS (24.4-33.2)
== END 2025-05-07 13:55 ==
LOC: FB.ED 10:34
DX: E66.811 Obesity, class 1 (principal); I10 Essential (primary) hypertension; E78.00 Pure hypercholesterolemia, unspecified; K21.9 Gastro-esophageal reflux disease without esophagitis; E11.9 Type 2 diabetes mellitus without complications; E03.9 Hypothyroidism, unspecified; Z79.82 Long term (current) use of aspirin; Z79.899 Other long term (current) drug therapy; Z79.4 Long term (current) use of insulin; Z79.84 Long term (current) use of oral hypoglycemic drugs
CPT/HCPCS: 36415; 70450; 70450-26; 71045; 71045-26; 83605; 83880; 84484; 85379; 85610; 85730; 87637; 93005; 99284

== ENCOUNTER 2025-05-20 09:57 | Emergency (ER) | payer MEDICARE, MEDICAID ==
[2025-05-20] MEDS ORDERED: Sodium Chloride 0.9% 10 ML Syringe FLUSH PRN (10:34)
[2025-05-20 10:39] VITALS: BP 129/85; PULSE 106
[2025-05-20 11:22] LABS: BASOPHILS ABSOLUTE AUTO 0.0 x10-3/uL (0.0-0.1); BASOPHILS PERCENT AUTO 0.3 % (0.2-1.5); EOSINOPHILS ABSOLUTE AUTO 0.0 x10-3/uL (0.0-0.8); EOSINOPHILS PERCENT AUTO 0.1 % (0.6-8.1); LYMPHOCYTES ABSOLUTE AUTO 0.8 x10-3/uL (1.0-4.4); LYMPHOCYTES PERCENT AUTO 6.6 % (18.4-52.1); MEAN PLATELET VOLUME 8.1 fL (7.1-12.4); MONOCYTES ABSOLUTE AUTO 1.6 x10-3/uL (0.3-1.0); MONOCYTES PERCENT AUTO 13.8 % (4.4-15.7); NEUTROPHILS ABSOLUTE AUTO 9.4 x10-3/uL (1.5-6.3); NEUTROPHILS PERCENT AUTO 79.2 % (30.8-76.2); PLATELET COUNT,PLT 152 x10(3)uL (151-488); RED BLOOD CELL COUNT 3.95 x10(6)uL (3.60-5.20); RED CELL DISTRIBUTION WIDTH 15.7 % (12.3-16.5); WHITE BLOOD CELL COUNT,WBC 11.9 x10-3/uL (3.0-10.3)
[2025-05-20 11:23] LABS: GLUCOSE,URINE NORMAL (NORMAL); OCCULT BLOOD,URINE MODERATE (NEGATIVE)
[2025-05-20 11:24] LABS: APPEARANCE,URINE CLEAR (CLEAR)
[2025-05-20 11:26] LABS: BLOOD UREA NITROGEN,BUN 16 mg/dL (7-18); CARBON DIOXIDE,CO2 27 mmol/L (21-32); CHLORIDE,CL 98 mmol/L (100-110); CREATININE 1.0 mg/dL (0.55-1.02); EST CRCL DRUG DOSING (CG) 38.10 mL/min; ESTIMATED GFR 57 mL/min (>60); GLUCOSE RANDOM 198 mg/dL (80-116); POTASSIUM,K 4.3 mmol/L (3.5-5.3); SODIUM,NA 136 mmol/L (135-145)
[2025-05-20 11:31] LABS: SQUAMOUS EPITHELIAL CELLS,UR OCCASIONAL (NS,R,O)
[2025-05-20 11:33] LABS: A/G RATIO 1.0; ALANINE AMINOTRANSFERASE,ALT 18 U/L (12-36); ASPARTATE AMNIOTRANSFERASE,AST 15 IU/L (5-25); BILIRUBIN TOTAL 0.5 mg/dL (0.1-1.3); PROTEIN TOTAL,TP 7.1 g/dL (6.0-8.0)
[2025-05-20] MEDS: Iopamidol 755 Mg/ML 100 ML Bottle IV SCH (13:08)
== END 2025-05-20 15:50 ==
LOC: FB.ED 09:57
DX: A41.9 Sepsis, unspecified organism (principal); R65.20 Severe sepsis without septic shock; G93.40 Encephalopathy, unspecified; E87.20 Acidosis, unspecified; I10 Essential (primary) hypertension; E78.00 Pure hypercholesterolemia, unspecified; K21.9 Gastro-esophageal reflux disease without esophagitis; E11.42 Type 2 diabetes mellitus with diabetic polyneuropathy; E03.9 Hypothyroidism, unspecified; Z79.82 Long term (current) use of aspirin; Z79.4 Long term (current) use of insulin; Z79.84 Long term (current) use of oral hypoglycemic drugs; Z79.890 Hormone replacement therapy; Z79.899 Other long term (current) drug therapy
CPT/HCPCS: 36415; 51702; 70450; 70450-26; 71045; 71045-26; 74177; 74177-26; 80053; 81001; 83605; 83735; 84484; 85025; 86140; 87040; 93005; 96360; 96361; 99285-25; J7030; Q9967